=== PATIENT | female | born 1980 | race Two or more races ===

== ENCOUNTER 2017-12-02 05:55 | Day surgery (SDC) | payer OTHER ==
[2017-12-02] MEDS ORDERED: NAPROXEN SODIU550 M1 PO (12:42)
== END 2017-12-02 17:00 | disposition home or self-care (01) ==
LOC: CIR.AMB 05:55
DX: N92.1 Excessive and frequent menstruation with irregular cycle (principal); N85.8 Other specified noninflammatory disorders of uterus

== ENCOUNTER 2021-04-28 09:15 | Outpatient (CLI) | payer OTHER ==
[~2021-04-28 09:15] MED LIST: NAPROXEN SODIU550 M1 PO
== END 2021-04-28 09:40 | disposition home or self-care (01) ==
LOC: RX STUDY 09:15
PROVIDERS: ATTEND Obstetrics & Gynecology Reproductive Endocrinology
DX: N93.0 Postcoital and contact bleeding (principal)